=== PATIENT | female | born 1955 | race Caucasian/White ===

== ENCOUNTER 2017-01-27 09:30 | Emergency (ER) | payer OTHER ==
[2017-01-27 09:51] LABS: URINE BILIRUBIN NEGATIVE (NEGATIVE); URINE BLOOD NEGATIVE (NEGATIVE); URINE GLUCOSE (UA) NORMAL (NORMAL); URINE KETONE NEGATIVE (NEGATIVE); URINE LEUKOCYTE ESTERASE 2+ (NEGATIVE); URINE NITRATE NEGATIVE (NEGATIVE); URINE PROTEIN NEGATIVE (NEGATIVE); UROBILINOGEN NORMAL mg/dL (<1.0)
[2017-01-27 10:13] LABS: URINE RBC 0-5 /[HPF] (0-2)
[2017-01-27 10:14] LABS: URINE BACTERIA TRACE (NONE SEEN)
[2017-01-27 10:35] LABS: BASO % 0.7 % (0.1-1.2); EOS # 0.1 10_X3_uL (0.0-0.4); EOS % 1.4 % (0.7-5.8); GRAN # 3.2 10_X3_uL (1.6-6.1); GRAN % 55.3 % (34.0-71.1); HEMATOCRIT 44.1 % (34-45); HEMOGLOBIN 14.9 g/dL (11.2-15.7); LYMPH # 2.1 10_X3_uL (1.2-3.7); MEAN CORPUSCULAR HEMOGLOBIN 28.6 pg (27.0-33.0); MEAN CORPUSCULAR HGB CONC 33.8 g/dL (32.0-36.0); MEAN CORPUSCULAR VOLUME 84.6 fL (79-95); MEAN PLATELET VOLUME 10.5 fl (7.5-11.5); MONO # 0.4 10_X3_uL (0.2-0.9); MONO % 6.6 % (4.7-12.5); PLATELET COUNT 255 x10_3/uL (182-369); RED BLOOD COUNT 5.21 x10_6/uL (3.9-5.2); RED CELL DISTRIBUTION WIDTH 13.5 % (11.7-14.4); WHITE BLOOD COUNT 5.8 x10_3/uL (4.0-10.0)
[2017-01-27 10:50] LABS: ALBUMIN 4.4 gm/dL (3.4-5.0); ALKALINE PHOSPHATASE 132 U/L (50-136); ALT/SGPT 11 U/L (3.5-33.9); AST/SGOT 16 U/L (7.04-26.96); BILIRUBIN,TOTAL 0.71 mg/dL (0.0-1.0); BLOOD UREA NITROGEN 13 mg/dL (7-18); CALCIUM 9.8 mg/dL (8.7-10.7); CARBON DIOXIDE 27 mmol/L (21-32); CREATININE 0.7 mg/dL (0.6-1.3); GLUCOSE,RANDOM 127 mg/dL (70-99); POTASSIUM 4.1 mmol/L (3.5-5.1); SODIUM 139 mmol/L (136-145); TOTAL PROTEIN 7.9 gm/dL (6.4-8.2)
== END 2017-01-27 11:24 | disposition home or self-care (01) ==
LOC: ER 09:30
PROVIDERS: Internal Medicine
DX: N39.0 Urinary tract infection, site not specified (principal); M54.5 Low back pain; E11.9 Type 2 diabetes mellitus without complications; I10 Essential (primary) hypertension; Z98.51 Tubal ligation status; Z79.899 Other long term (current) drug therapy; Z88.6 Allergy status to analgesic agent
CPT/HCPCS: 36415; 80053; 81001; 85025; 96372; 99070; 99284-25